=== PATIENT | female | born 1965 | race Two or more races ===

== ENCOUNTER 2019-06-10 14:35 | Outpatient (CLI) | payer OTHER ==
[~2019-06-10] VITALS: Ht 160 cm; Wt 93.9 kg
== END 2019-06-10 16:30 | disposition home or self-care (01) ==
LOC: OFIC 805 14:35
DX: H93.11 Tinnitus, right ear (principal); Q27.39 Arteriovenous malformation, other site

== ENCOUNTER 2019-07-16 15:48 | Emergency (ER) | payer OTHER ==
[~2019-07-16] VITALS: Ht 162.6 cm; Wt 81.6 kg
[2019-07-16] MEDS ORDERED: FOSAMAX70 MG (16:02)
[2019-07-16] MEDS ORDERED: ATACAND4 MG (16:02)
[2019-07-16] MEDS ORDERED: XANAX2 MG PO (16:05)
== END 2019-07-16 16:23 | disposition home or self-care (01) ==
LOC: ER 15:48
DX: R51 Headache (principal); G62.9 Polyneuropathy, unspecified

== ENCOUNTER 2019-07-25 11:50 | Emergency (ER) | payer OTHER ==
[~2019-07-25] VITALS: Ht 160 cm; Wt 93.0 kg
[~2019-07-25 11:50] MED LIST: ATACAND4 MG; FOSAMAX70 MG; XANAX2 MG PO
== END 2019-07-25 15:50 | disposition home or self-care (01) ==
LOC: EMR PED 11:50 → CPU-OBS 11:56 → ER 11:56
DX: I47.1 Supraventricular tachycardia (principal)
CPT/HCPCS: G0378; G0379; 93005

== ENCOUNTER 2019-10-21 06:44 | Outpatient (CLI) | payer OTHER | END 2019-10-21 06:46 | disposition home or self-care (01) | LOC: LAB 06:44 | PROVIDERS: ATTEND Internal Medicine Hematology & Oncology | DX: D64.89 Other specified anemias (principal); D68.59 Other primary thrombophilia; R74.0 Nonspecific elevation of levels of transaminase and lactic acid dehydrogenase [LDH]; C50.411 Malignant neoplasm of upper-outer quadrant of right female breast ==

== ENCOUNTER 2019-12-30 18:09 | Emergency (ER) | payer OTHER ==
[~2019-12-30] VITALS: Ht 162.6 cm; Wt 89.8 kg
[2019-12-30] MEDS ORDERED: XARELTO15 MG (18:18)
[2019-12-30] MEDS ORDERED: XARELTO20 M1 (19:06)
[2019-12-30] MEDS ORDERED: ATACAND HCT 161 EACH (19:07)
[2019-12-30] MEDS ORDERED: TOPAMAX50 MG (19:07)
[2019-12-30] MEDS ORDERED: INDERAL XL80 MG (19:07)
[2019-12-30] MEDS ORDERED: PERCOCET 5-3251 EACH (19:08)
[2019-12-31] MEDS ORDERED: MEDROLPACK PO (11:42)
[2019-12-31] MEDS ORDERED: ULTRAM50 MG PO (11:42)
[2019-12-31] MEDS ORDERED: VISTARIL50 MG PO (11:42)
== END 2019-12-31 12:55 | disposition home or self-care (01) ==
LOC: ER 18:09
DX: G89.18 Other acute postprocedural pain (principal); R51 Headache; G97.52 Postprocedural hemorrhage of a nervous system organ or structure following other procedure; F41.1 Generalized anxiety disorder; I10 Essential (primary) hypertension
CPT/HCPCS: 70450; 70552; 93005; A9575; 70545

== ENCOUNTER 2020-03-17 08:47 | Outpatient (CLI) | payer OTHER ==
[~2020-03-17 08:47] MED LIST changes: +ATACAND HCT 161 EACH; +INDERAL XL80 MG; +MEDROLPACK PO; +PERCOCET 5-3251 EACH; +TOPAMAX50 MG; +ULTRAM50 MG PO; +VISTARIL50 MG PO; +XARELTO15 MG; +XARELTO20 M1
== END 2020-03-17 08:57 | disposition home or self-care (01) ==
LOC: LAB 08:47
PROVIDERS: ATTEND Internal Medicine Pulmonary Disease
DX: R05 Cough (principal); J45.998 Other asthma

== ENCOUNTER 2020-03-23 07:09 | Outpatient (CLI) | payer OTHER | END 2020-03-23 07:13 | disposition home or self-care (01) | LOC: LAB 07:09 | PROVIDERS: ATTEND Obstetrics & Gynecology | DX: I10 Essential (primary) hypertension (principal); E03.8 Other specified hypothyroidism; Z00.00 Encounter for general adult medical examination without abnormal findings; E78.00 Pure hypercholesterolemia, unspecified; N39.0 Urinary tract infection, site not specified; Z11.4 Encounter for screening for human immunodeficiency virus [HIV]; E55.9 Vitamin D deficiency, unspecified; Z21 Asymptomatic human immunodeficiency virus [HIV] infection status; R79.89 Other specified abnormal findings of blood chemistry; Z12.11 Encounter for screening for malignant neoplasm of colon ==